=== PATIENT | female | born 1975 | race Caucasian/White ===

== ENCOUNTER 2017-08-04 16:06 | Emergency (ER) | payer SELFPAY ==
[~2017-08-04] VITALS: Ht 167.6 cm; Wt 90.9 kg
[~2017-08-04 16:06] MED LIST: ALBUTEROL SULFAT3 M3 IH; ALBUTEROL0.09 MG/A4 IH; ATARAX10 MG PO; BACTRIM DS 8001 TAB PO; BUSPAR; BUSPAR10 MG PO; CARAFATE1 G1 PO; CEPHALEXIN500 M1 PO; FLOVENT DI50 MCG/Act IH; FLOVENT INH; FLOVENT0.044 MG/A IH; FLOVENT0.044 MG/A INH; KLONOPIN1 MG PO; METRONIDAZOLE500 MG PO; MINIPRESS2 MG PO; MINIPRESS5 MG PO; NAPROXEN SOD550 MG PO; NEB; NORCO 325 MG-51 TA1 PO; NORCO 325 MG-51 TAB PO; OMEPRAZOLE40 MG PO; PEN-VEE K500 MG PO; PHENERGAN 25 TA25 MG PO; PHENERGAN W/CO120 M1 PO; PROTONIX TR40 M1 PO; PROVENTIL0.09 MG/A1 IH; RESTORIL15 MG; ULTRACET TABL1 UDTAB PO; ULTRAM 50MG TAB50 MG PO; ULTRAM50 M1 PO; ULTRAM50 MG PO; VIBRAMYCIN100 MG PO; WELLBUTRIN 75MG75 MG; ZITHROMAX 250M250 MG PO; ZOFRAN 4MG T4 MG/TAB PO; ZOLOFT50 MG PO
[2017-08-04] MEDS ORDERED: NEURONTIN300 M1 PO (17:46)
[2017-08-04 17:55] VITALS: BP 180/86
== END 2017-08-04 17:50 | disposition home or self-care (01) ==
LOC: ED 16:06
DX: M54.12 Radiculopathy, cervical region (principal); R51 Headache; J44.9 Chronic obstructive pulmonary disease, unspecified; F41.9 Anxiety disorder, unspecified; F32.9 Major depressive disorder, single episode, unspecified; K21.9 Gastro-esophageal reflux disease without esophagitis; F17.210 Nicotine dependence, cigarettes, uncomplicated
CPT/HCPCS: J1885; J3010

== ENCOUNTER 2018-02-27 08:55 | Emergency (ER) | payer SELFPAY ==
[~2018-02-27] VITALS: Wt 99.1 kg
[~2018-02-27 08:55] MED LIST changes: +NEURONTIN300 M1 PO
[2018-02-27] MEDS ORDERED: ACID REDUCER 1150 MG PO (09:04)
[2018-02-27] MEDS ORDERED: GOOD NEIGHBOR200 M3 PO (09:04)
[2018-02-27 09:32] LABS: HEMATOCRIT 35.8 % (37.0-47.0); HEMOGLOBIN 11.6 g/dL (12.5-16.0); MEAN CELL VOLUME 89 fl (78-100); MEAN CORPUSCULAR HEMOGLOBIN 29 pg (27-31); MEAN CORPUSCULAR HGB CONC 32 g/dL (33-37); MEAN PLATELET VOLUME 10.1 fl (7.4-10.4); PLATELET COUNT 376 K/mm3 (130-400); RED BLOOD COUNT 4.02 M/mm3 (4.10-5.30); RED CELL DISTRIBUTION WIDTH 13.7 % (11.5-14.5); WHITE BLOOD COUNT 15.2 K/mm3 (4.8-10.8)
[2018-02-27 09:45] LABS: ALBUMIN 3.6 g/dL (3.5-5.0); BUN/CREATININE RATIO 9.2 (6.0-26.0); CALCIUM 8.7 mg/dL (8.4-10.2); POTASSIUM 3.6 mmol/L (3.6-5.0); TOTAL BILIRUBIN 0.3 mg/dL (0.2-1.3)
[2018-02-27 09:46] LABS: LYMPHOCYTE 14 % (20-51); MONOCYTE 5 % (3-10); NEUTROPHILS 80 % (42-75)
[2018-02-27 09:53] LABS: URINE APPEARANCE CLEAR; URINE BILIRUBIN NEGATIVE (NEGATIVE); URINE BLOOD 250 ery/uL (NEGATIVE); URINE COLOR YELLOW; URINE GLUCOSE NEGATIVE (NEGATIVE); URINE KETONE NEGATIVE (NEGATIVE); URINE NITRATE NEGATIVE (NEGATIVE); URINE PROTEIN(semi-quant) TRACE mg/dL (NEGATIVE); URINE UROBILINOGEN NORMAL (NORMAL)
[2018-02-27 09:54] LABS: URINE LEUKOCYTE ESTERASE NEGATIVE (NEGATIVE); URINE MUCUS PRESENT (NOT PRESENT)
[2018-02-27] MEDS ORDERED: CEFDINIR300 MG PO (12:41)
[2018-02-27] MEDS ORDERED: NORCO 325 MG-51 TA1 PO (12:42)
[2018-02-27] MEDS ORDERED: ZOFRAN ODT8 M1 PO (12:42)
[2018-02-27 13:07] VITALS: BP 135/71
== END 2018-02-27 13:23 | disposition home or self-care (01) ==
LOC: ED 08:55
PROVIDERS: Physician Assistant
DX: N12 Tubulo-interstitial nephritis, not specified as acute or chronic (principal); F17.210 Nicotine dependence, cigarettes, uncomplicated; Z87.442 Personal history of urinary calculi
CPT/HCPCS: J0696; J1885; J2405; J3010; J7030; Q9967

== ENCOUNTER 2018-08-25 16:35 | Emergency (ER) | payer SELFPAY ==
[~2018-08-25] VITALS: Ht 172.7 cm; Wt 90.9 kg
[~2018-08-25 16:35] MED LIST changes: +ACID REDUCER 1150 MG PO; +CEFDINIR300 MG PO; +GOOD NEIGHBOR200 M3 PO; +ZOFRAN ODT8 M1 PO
[2018-08-25] MEDS ORDERED: PROAIR HFA0.09 MG/AC IH (16:51)
[2018-08-25 17:34] LABS: HEMATOCRIT 39.8 % (37.0-47.0); HEMOGLOBIN 12.8 g/dL (12.5-16.0); MEAN CELL VOLUME 92 fl (78-100); MEAN CORPUSCULAR HEMOGLOBIN 30 pg (27-31); MEAN CORPUSCULAR HGB CONC 32 g/dL (33-37); MEAN PLATELET VOLUME 9.8 fl (7.4-10.4); PLATELET COUNT 416 K/mm3 (130-400); RED BLOOD COUNT 4.32 M/mm3 (4.10-5.30); RED CELL DISTRIBUTION WIDTH 13.7 % (11.5-14.5); WHITE BLOOD COUNT 14.2 K/mm3 (4.8-10.8)
[2018-08-25 17:43] LABS: PH-URINE 5.5 (5.0 - 8.0); URINE APPEARANCE CLOUDY; URINE BILIRUBIN NEGATIVE (NEGATIVE); URINE COLOR YELLOW; URINE GLUCOSE NEGATIVE (NEGATIVE); URINE KETONE NEGATIVE (NEGATIVE); URINE PROTEIN(semi-quant) TRACE mg/dL (NEGATIVE); URINE UROBILINOGEN NORMAL (NORMAL)
[2018-08-25 17:44] LABS: URINE BLOOD 50 ery/uL (NEGATIVE); URINE LEUKOCYTE ESTERASE 2+ (NEGATIVE); URINE NITRATE POSITIVE (NEGATIVE); URINE WBC >50 /hpf (0-3)
[2018-08-25 17:45] LABS: URINE MUCUS PRESENT (NOT PRESENT)
[2018-08-25 17:45] LABS: ALBUMIN 3.8 g/dL (3.5-5.0); CALCIUM 8.9 mg/dL (8.4-10.2); POTASSIUM 4.2 mmol/L (3.6-5.0); TOTAL BILIRUBIN 0.4 mg/dL (0.2-1.3); TOTAL PROTEIN 7.3 g/dL (6.3-8.2)
[2018-08-25 18:00] LABS: LYMPHOCYTE 15 % (20-51); MONOCYTE 8 % (3-10); NEUTROPHILS 77 % (42-75)
[2018-08-25] MEDS ORDERED: CIPRO500 M1 PO (20:31)
[2018-08-25 20:45] VITALS: BP 160/99
== END 2018-08-25 20:50 | disposition home or self-care (01) ==
LOC: ED 16:35
PROVIDERS: Nurse Practitioner; Nurse Practitioner Family
DX: N10 Acute pyelonephritis (principal); Z87.442 Personal history of urinary calculi; J44.9 Chronic obstructive pulmonary disease, unspecified; F17.210 Nicotine dependence, cigarettes, uncomplicated; I10 Essential (primary) hypertension; K21.9 Gastro-esophageal reflux disease without esophagitis; Z79.899 Other long term (current) drug therapy
CPT/HCPCS: J0744; J2405; J7030

== ENCOUNTER 2019-01-03 12:16 | Emergency (ER) | payer SELFPAY ==
[~2019-01-03] VITALS: Ht 167.6 cm; Wt 95.5 kg
[~2019-01-03 12:16] MED LIST changes: +ALBUTEROL2.5 MG/3 M IH; +CIPRO500 M1 PO; +GUAIFEN-CODEINE5 ML PO; +PROAIR HFA0.09 MG/AC IH; +TESSALON PERLE100 M1 PO
[2019-01-03 13:27] LABS: HEMATOCRIT 37.7 % (37.0-47.0); HEMOGLOBIN 11.9 g/dL (12.5-16.0); MEAN CELL VOLUME 90 fl (78-100); MEAN CORPUSCULAR HEMOGLOBIN 28 pg (27-31); MEAN CORPUSCULAR HGB CONC 32 g/dL (33-37); MEAN PLATELET VOLUME 10.6 fl (7.4-10.4); PLATELET COUNT 399 K/mm3 (130-400); RED BLOOD COUNT 4.21 M/mm3 (4.10-5.30); RED CELL DISTRIBUTION WIDTH 13.6 % (11.5-14.5); WHITE BLOOD COUNT 7.2 K/mm3 (4.8-10.8)
[2019-01-03 13:37] LABS: ALBUMIN 3.8 g/dL (3.5-5.0); CALCIUM 8.6 mg/dL (8.4-10.2); POTASSIUM 3.9 mmol/L (3.6-5.0); TOTAL BILIRUBIN 0.3 mg/dL (0.2-1.3); TOTAL PROTEIN 7.1 g/dL (6.3-8.2)
[2019-01-03 13:40] LABS: LYMPHOCYTE 35 % (20-51); MONOCYTE 10 % (3-10); NEUTROPHILS 50 % (42-75)
[2019-01-03 15:17] VITALS: BP 186/99
== END 2019-01-03 14:15 | disposition home or self-care (01) ==
LOC: ED 12:16
PROVIDERS: Physician Assistant
DX: K11.20 Sialoadenitis, unspecified (principal); J11.1 Influenza due to unidentified influenza virus with other respiratory manifestations; J44.9 Chronic obstructive pulmonary disease, unspecified; F17.210 Nicotine dependence, cigarettes, uncomplicated; Z88.1 Allergy status to other antibiotic agents
CPT/HCPCS: J2930; Q9967

== ENCOUNTER 2020-03-12 12:08 | Emergency (ER) | payer SELFPAY ==
[2020-03-12] MEDS ORDERED: AMOXICILLIN 50500 MG PO (13:14)
[2020-03-12] MEDS ORDERED: KETOROLAC10 MG PO (13:14)
[2020-03-12 13:22] VITALS: BP 156/91
== END 2020-03-12 13:17 | disposition home or self-care (01) ==
LOC: ED 12:08
DX: K02.9 Dental caries, unspecified (principal); F43.10 Post-traumatic stress disorder, unspecified; F17.210 Nicotine dependence, cigarettes, uncomplicated
CPT/HCPCS: J1885

== ENCOUNTER 2020-05-15 21:12 | Emergency (ER) | payer SELFPAY ==
[~2020-05-15 21:12] MED LIST changes: +AMOXICILLIN 50500 MG PO; +KETOROLAC10 MG PO
== END 2020-05-15 21:35 ==
LOC: ED 21:12
DX: Z72.89 Other problems related to lifestyle (principal)